=== PATIENT | male | born 1970 | race Caucasian/White ===

== ENCOUNTER 2016-08-25 12:59 | Emergency (ER) | payer MEDICAID ==
[~2016-08-25] VITALS: Ht 175.3 cm; Wt 68.0 kg
[2016-08-25 13:03] VITALS: BP 120/86
== END 2016-08-25 13:48 | disposition home or self-care (01) ==
LOC: ED 13:43
DX: K02.9 Dental caries, unspecified (principal); F17.210 Nicotine dependence, cigarettes, uncomplicated; F12.10 Cannabis abuse, uncomplicated; Z88.5 Allergy status to narcotic agent
CPT/HCPCS: 99283

== ENCOUNTER 2017-02-28 15:58 | Emergency (ER) | payer MEDICAID ==
[~2017-02-28] VITALS: Ht 172.7 cm; Wt 70.0 kg
[2017-02-28 16:01] VITALS: BP 124/84
== END 2017-02-28 16:39 | disposition home or self-care (01) ==
LOC: ED 16:10
DX: L03.012 Cellulitis of left finger (principal); L02.512 Cutaneous abscess of left hand; F17.200 Nicotine dependence, unspecified, uncomplicated
CPT/HCPCS: 99283

== ENCOUNTER 2018-12-22 13:58 | Emergency (ER) | payer MEDICAID ==
[~2018-12-22] VITALS: Ht 170.2 cm; Wt 76.3 kg
[2018-12-22 14:11] VITALS: BP 137/93
[2018-12-22] MEDS ORDERED: IBUPROFEN 800 MG TABLET ONE (14:44)
[2018-12-22] MEDS ORDERED: IBUPROFEN 800 MG TABLET PO ONE (15:00)
== END 2018-12-22 14:54 | disposition home or self-care (01) ==
LOC: ED 14:48
DX: K02.9 Dental caries, unspecified (principal); F17.200 Nicotine dependence, unspecified, uncomplicated
CPT/HCPCS: 99283

== ENCOUNTER 2019-12-13 10:25 | Emergency (ER) | payer MEDICAID ==
[~2019-12-13] VITALS: Ht 177.8 cm; Wt 70.4 kg
[2019-12-13 10:54] VITALS: BP 130/67
== END 2019-12-13 11:10 | disposition home or self-care (01) ==
LOC: ED 10:51
DX: K02.9 Dental caries, unspecified (principal)
CPT/HCPCS: 99283